=== PATIENT | male | born 1975 | race Caucasian/White ===

== ENCOUNTER → 2025-07-01 | Outpatient (REF) | payer OTHER ==
[~2025-07-01] MED LIST: BACL10TA2 PO; GABA-1171 PO; HYDR50TA70 PO; MIRT-15 PO; No Home Medications; PRIL20CA9 PO; hydrocodone PO
[2025-07-01 12:31] LABS: ALT/SGPT 24 U/L (7.0-40); AST/SGOT 22 U/L (<34); CALCIUM LEVEL 8.7 MG/DL (8.5-10.1); CARBON DIOXIDE LEVEL 29 MMOL/L (20-31); CHLORIDE LEVEL 103 MMOL/L (98-107); CHOLESTEROL LEVEL 181 MG/DL (<200); CHOLESTEROL RISK RATIO 6.41 (<5); CREATININE FOR GFR 0.96 MG/DL (0.70-1.30); GLOMERULAR FILTRATION RATE > 90.0 (>56); LDL CHOLESTEROL 119.6 MG/DL (<100); NON-HDL-C 152.8 MG/DL; POTASSIUM SERUM 4.0 MMOL/L (3.5-5.1); SODIUM LEVEL 140 MMOL/L (136-145); TRIGLYCERIDES LEVEL 166 MG/DL (<150)
== END ==
LOC: M LAB REF 11:48
PROVIDERS: ATTEND Family Medicine Addiction Medicine
DX: E78.5 Hyperlipidemia, unspecified (principal)